=== PATIENT | female | born 1975 | race African-American/Black ===

== ENCOUNTER 2017-11-01 14:06 | Outpatient (CLI) ==
--- NOTE | 2017-11-01 14:33 | DI ---
EXAM: Two views of the chest. History: Chest pain. Comparison: Chest radiograph 08/06/2013 Findings: Heart size is within normal limits. No focal consolidation. No appreciable pleural fluid and no pneumothorax. No acute osseous abnormalities. Surgical clips seen within the upper abdomen. Impression: No acute cardiopulmonary process.
== END 2017-11-01 14:07 | disposition home or self-care (01) ==
LOC: RAD 14:06
PROVIDERS: ATTEND Family Medicine
DX: R07.9 Chest pain, unspecified (principal)

== ENCOUNTER 2017-11-14 12:37 | Outpatient (CLI) ==
--- NOTE | 2017-11-16 09:20 | MAMMO ---
EXAM: Digital screening mammogram with 3-D tomosynthesis and CAD HISTORY: Screening mammogram COMPARISON: Mammogram 08/11/2015 FINDINGS: Bilateral CC and MLO views of the breasts were performed digitally and demonstrate heterog eneous breast density. There is a stable right retroareolar mass unchanged since 2015. There is no a bnormal nodule or calcification. There is no significant interval change. IMPRESSION: No new or suspicious nodule or calcification RECOMMENDATION: Annual screening mammogram BIRADS category II: Benign findings
== END 2017-11-14 12:38 | disposition home or self-care (01) ==
LOC: RAD 12:37
PROVIDERS: ATTEND Family Medicine
DX: Z12.31 Encounter for screening mammogram for malignant neoplasm of breast (principal)
CPT/HCPCS: 77067

== ENCOUNTER 2019-02-13 13:07 | Outpatient (CLI) ==
--- NOTE | 2019-02-14 10:51 | MAMMO ---
EXAM: Digital screening mammogram with tomosynthesis HISTORY: Screening COMPARISON: 11/14/2017 and prior FINDINGS: Digital MLO and CC views of the right and left breast were performed. Tomosynthesis was p erformed. Computer aided detection utilized. The breast tissue is heterogeneously dense, which coul d obscure small masses. Stable benign mass right retroareolar breast. There is no evidence for mass , asymmetry, distortion, or suspicious calcifications in either breast. IMPRESSION: 1. No evidence of malignancy in the right or left breast. 2. Annual screening mammogram is recommended in one year. BIRADS category 2, benign
== END 2019-02-13 13:08 | disposition home or self-care (01) ==
LOC: RAD 13:07
PROVIDERS: ATTEND Family Medicine
DX: Z12.31 Encounter for screening mammogram for malignant neoplasm of breast (principal)